=== PATIENT | male | born 1990 | race Caucasian/White ===

== ENCOUNTER 2023-07-08 21:47 | Emergency (ER) | payer BC ==
[~2023-07-08] VITALS: Ht 175.3 cm; Wt 113.0 kg
[2023-07-08 21:57] VITALS: O2SAT 98
[2023-07-08] MEDS: MORPHINE SULFATE 4 MG/ML INJ (FOR IV/IM USE) IV STA (23:25)
[2023-07-08] MEDS: ONDANSETRON HCL 4MG/2ML INJ IV STA (23:25)
[2023-07-09] MEDS ORDERED: IBUP-2029 MT (01:07)
[2023-07-09 01:51] VITALS: BP 128/81; PULSE 74; RESP 19; TEMP 98.4
== END 2023-07-09 01:52 | disposition home or self-care (01) ==
LOC: ER 21:47
DX: M25.512 Pain in left shoulder (principal); Z90.49 Acquired absence of other specified parts of digestive tract
CPT/HCPCS: 99284; 96374; 71045; 96375; 73030; 73060; J2405; J2270